=== PATIENT | female | born 1960 | race African-American/Black ===

== ENCOUNTER → 2017-01-30 | Outpatient (CLI) | payer OTHER ==
--- NOTE | ~2017-01-30 | MR113 ---
[facility] A Service of [facility] / [facility] RADIOLOGY TEXT RESULTS PATIENT: KENDY MESA LOCATION: [facility] : 60 UNIT #: [id number] AGE: [address]: KASHIF KAMARA SEX: F ORDER DR: [id number] [address] [address] [id number] O MR#: [id number] Acc #: [id number] NAME: KENDY MESA : 1960 SEX: F STUDY DATE/TIME: 01/30/2017 13:49 UNIT: [facility] ROOM: STUDY DESCRIPTION: MR Lumbar Wo Contrast Ordering Physician: Unknown Not Know Primary Care Physician: Hien Hamilton Aprn MRI CENTER REPORT This report is preliminary unless electronic signature is present. EXAM MRI of the lumbar spine without contrast HISTORY 57-year-old female complains of low back pain. History of lumbar surgery in 2004. Persistent pain since surgery. Pain radiates to left side. No known trauma. COMPARISON Lumbar spine series 11/08/2014. TECHNIQUE Multiplanar multi-echo images of the lumbar spine utilizing a high-field magnet and dedicated protocol. FINDINGS Examination demonstrates increased T1 signal along the inferior endplate of L5 vertebral body compatible with type 2 Modic change. Normal termination of the conus. Normal spinal alignment. At L1-L2, the disc space is maintained. No spinal or foraminal stenosis. At L2-L3, the disc space is maintained. No spinal or foraminal stenosis. Minimal left L2-L3 facet arthropathy. At L3-L4, the disc space is maintained. No spinal or foraminal stenosis. At L4-L5, the disc space is maintained. There is a mild broad-based posterior disc protrusion with minimal effacement of the thecal sac but no cord impingement. Bilateral facet arthropathy noted, left greater than right. There may be mild impingement of the descending left L5 nerve roots. [facility] A Service of [facility] / [facility] RADIOLOGY TEXT RESULTS PATIENT: KENDY MESA LOCATION: [facility] : 60 UNIT #: [id number] AGE: [address]: KASHIF KAMARA SEX: F ORDER DR: At L5-S1, there is a degenerative disc changes. Suspected laminectomy defect seen on the right at the L5-S1 level. There is bilateral L5-S1 facet arthropathy, right greater than left. Visualized SI joints and paravertebral soft tissues appear normal. Patient also demonstrates a moderate amount of edema and inflammation between the facet joints at the L2-L3 level. This may represent a manifestation of [place] disease. IMPRESSION 1. Multilevel degenerative disc disease and facet arthropathy as detailed above, to include inflammation and degeneration within the spinous processes, particularly at L2-L3. 2. Postsurgical changes from a right L5 azar-laminectomy. Dictated by... Sandy Carvalho M.D. THIS IS AN ELECTRONICALLY VERIFIED REPORT Sandy Carvalho M.D. at 02/06/2017 1:42 PM ELIANA/yordan TD: 01/31/2017 20:19 JOB #: [id number] MRI CENTER REPORT Page 1 of 1
--- NOTE | ~2017-01-30 | MR32 ---
[facility] A Service of [facility] & [facility] RADIOLOGY TEXT RESULTS PATIENT: KENDY MESA LOCATION: [facility] : 60 UNIT #: [id number] AGE: [address]: KASHIF HSIEH SEX: F ORDER DR: [id number] [address] [address] [id number] O MR#: [id number] Acc #: [id number] NAME: KENDY MESA : 1960 SEX: F STUDY DATE/TIME: 01/30/2017 13:20 UNIT: [facility] ROOM: STUDY DESCRIPTION: MR Cervical Wo Contrast Attending Physician: Belgica Hsieh Aprn Referring Physician: Belgica Hsieh Aprn Ordering Physician: Staff Doctor Not On Primary Care Physician: Hien Hamilton Aprn MRI CENTER REPORT This report is preliminary unless electronic signature is present. EXAM MRI of the cervical spine without contrast. HISTORY 57-year-old female who complains of neck pain for 4 months. Pain radiating to left and to right. Posterior neck pain. No known trauma. FINDINGS Multiplanar, multiecho imaging was performed of the cervical spine utilizing a high-field magnet dedicated protocol. Loss of the normal cervical lordosis. Cervical cord signal appears normal without mass, syrinx or contusion. No evidence of Chiari malformation. Marrow edema borders the C5-6 disc space compatible with type 1 Modic changes. The atlantoaxial joint is unremarkable. At C2-3 the disc spaces maintained. No spinal or foraminal stenosis. At C3-4, the disc spaces maintained. No spinal or foraminal stenosis. At C4-5, there is a small central left paracentral annular tear and disc protrusion. This faces the thecal sac and indents the anterior cervical cord. The foramina appear patent. At C5-6, there is degenerative disc changes with disc space narrowing and a broad-based posterior disc protrusion and osteophyte with a slightly greater right paracentral component. This effaces the thecal sac and impinges the anterior cervical cord. At C6-7, minimal posterior disc bulging, but no significant central canal or foraminal stenosis. C7-T1, the disc space is maintained, no spinal foraminal stenosis. Paravertebral soft tissues remarkable for a left thyroid nodule estimated up to 1.9 cm. The patient has had previous thyroid ultrasound which confirmed multiple thyroid nodules but based on [facility]. [facility] A Service of [facility] & [facility] RADIOLOGY TEXT RESULTS PATIENT: KENDY MESA LOCATION: [facility] : 60 UNIT #: [id number] AGE: [address]: KASHIF HSIEH SEX: F ORDER DR: the MRI findings, this may represent either a new nodule or interval growth of the nodule as this now is estimated close to 1.9 cm. Follow up thyroid ultrasound may be warranted. IMPRESSION 1. Multilevel degenerative disc disease as described above in level by level detail. Small annular tear and central left paracentral disc extrusion at C4-5 and a broad-based posterior disc protrusion osteophyte at C5-6. 2. Suspected 1.9 cm left lobe thyroid nodule. Further evaluation with thyroid sonogram may be warranted. Dictated by... Sandy Carvalho M.D. THIS IS AN ELECTRONICALLY VERIFIED REPORT Sandy Carvalho M.D. at 02/06/2017 1:42 PM Justin TD: 01/31/2017 20:06 JOB #: [id number] MRI CENTER REPORT Page 1 of 1
== END | disposition home or self-care (01) ==
LOC: SMRI 12:58
DX: M51.36 Other intervertebral disc degeneration, lumbar region (principal); M54.2 Cervicalgia; M50.221 Other cervical disc displacement at C4-C5 level; M50.222 Other cervical disc displacement at C5-C6 level; M50.322 Other cervical disc degeneration at C5-C6 level; M25.78 Osteophyte, vertebrae; M50.823 Other cervical disc disorders at C6-C7 level; M46.96 Unspecified inflammatory spondylopathy, lumbar region; M51.26 Other intervertebral disc displacement, lumbar region; Z98.890 Other specified postprocedural states; Z90.710 Acquired absence of both cervix and uterus
CPT/HCPCS: 72141; 72148